=== PATIENT | female | born 1990 ===

== ENCOUNTER 2018-10-18 15:35 | Observation (INO) | payer SELFPAY ==
[2018-10-18] MEDS ORDERED: FOLI1TAB6 PO (16:17)
[2018-10-18] MEDS ORDERED: PREN-96 PO (16:17)
[2018-10-18] MEDS ORDERED: FLUT500M2 INH (16:17)
== END 2018-10-18 16:20 | disposition home or self-care (01) | DRG 833 ==
LOC: LDRP 15:35
PROVIDERS: ADMIT Obstetrics & Gynecology; ATTEND Obstetrics & Gynecology
DX: O26.892 Other specified pregnancy related conditions, second trimester (principal); R10.9 Unspecified abdominal pain; O99.512 Diseases of the respiratory system complicating pregnancy, second trimester; J45.909 Unspecified asthma, uncomplicated; Z3A.20 20 weeks gestation of pregnancy
CPT/HCPCS: 59025; 81002; G0378

== ENCOUNTER → 2018-10-18 | Emergency (ER) | payer OTHER ==
[~2018-10-18] MED LIST: FLUT500M2 INH; FOLI1TAB6 PO; PREN-96 PO
== END | disposition left against medical advice (07) ==
LOC: ER 14:58
DX: O26.891 Other specified pregnancy related conditions, first trimester (principal); R10.9 Unspecified abdominal pain; Z53.21 Procedure and treatment not carried out due to patient leaving prior to being seen by health care provider; Z3A.00 Weeks of gestation of pregnancy not specified